=== PATIENT | female | born 1985 | race African-American/Black ===

== ENCOUNTER 2018-05-13 17:18 | Emergency (ER) | payer OTHER ==
[~2018-05-13] VITALS: Ht 167.6 cm; Wt 86.2 kg
--- NOTE | ~2018-05-13 | EKG ---
[place] [address] [facility] [place] [address] ELECTROCARDIOGRAM REPORT Name: KATHIE SALAZAR Room #: DEP LARRY Cage#: [id number] Admission: 05/13/18 Attend Phys: Discharge: 05/13/18 Date of : 83 Report #: [id number] THIS REPORT FOR: //name// [facility] ED Test Date: 2018-05-13 Test Time: 17:22:09 Pat Name: KATHIE SALAZAR Department: Room: Gender: F Computer Specialist: JAE : 1985 Requested By: Jorge Ruano Order Number: [id number] MD: Ar Macdonald Measurements Intervals [place] Rate: 71 P: 53 CO: 139 QRS: 22 QRSD: 87 T: 8 QT: 388 QTc: 422 Interpretive Statements Sinus rhythm No significant abnormality No previous ECG available for comparison Electronically Signed On 05-14-2018 10:09:41 CDT by Ar Macdonald [email or web address] <ELECTRONICALLY SIGNED> By: Ar Macdonald MD, [facility] 05/14/18 1009 1722 1722 Ar Macdonald MD, FACC /EPI
[~2018-05-13 17:18] MED LIST: AMOXICILLIN 50500 M1 PO; MUCINEX D TABL1 EAC1 PO; ULTRAM 50MG TAB50 MG PO
[2018-05-13 18:28] LABS: ABSOLUTE NEUTROPHILS 3.6 thou/uL (1.4-8.2); BASOPHILS 0.9 % (0.0-2.0); EOSINOPHILS 1.9 % (0.0-3.0); HEMATOCRIT 33.6 % (37.0-47.0); HEMOGLOBIN 10.6 gm/dL (12.0-15.0); LYMPHOCYTES 31.4 % (24.0-44.0); MCH 20.5 pg (26.0-34.0); MCHC 31.7 g/dL (28.0-37.0); MCV 64.8 fL (80.0-100.0); MONOCYTES 9.8 % (1.0-8.0); PLATELET COUNT 241 thou/uL (150-400); RBC 5.18 mil/uL (4.20-5.00); RDW 17.9 % (10.5-14.5); WBC 6.4 thou/uL (4.0-11.0)
[2018-05-13 18:38] LABS: ANION GAP 4 mmol/L (7-16); BUN 7 mg/dL (7-18); CALCIUM 9.7 mg/dL (8.5-10.1); CHLORIDE 104 mmol/L (98-107); CO2 29 mmol/L (21-32); CREATININE 0.9 mg/dL (0.6-1.0); GLUCOSE 93 mg/dL (74-106); POTASSIUM 3.7 mmol/L (3.5-5.1); SODIUM 137 mmol/L (136-145)
[2018-05-13 18:45] LABS: TROPONIN-I <0.06 ng/mL (<0.06)
[2018-05-13 18:59] LABS: ANISOCYTOSIS 1+; HYPOCHROMASIA 1+; MICROCYTES 1+
[2018-05-13] MEDS ORDERED: MOBIC15 MG PO (19:30)
[2018-05-13 19:50] VITALS: BP 159/88
== END 2018-05-13 19:50 | disposition home or self-care (01) ==
LOC: ER 17:18
PROVIDERS: Physician Assistant
DX: R07.89 Other chest pain (principal); R06.02 Shortness of breath

== ENCOUNTER → 2018-11-14 | Outpatient (CLI) | payer BC ==
[~2018-11-14] MED LIST changes: +MOBIC15 MG PO
== END ==
LOC: ULTRA 10:20
DX: N83.02 Follicular cyst of left ovary (principal); N83.01 Follicular cyst of right ovary; N92.1 Excessive and frequent menstruation with irregular cycle

== ENCOUNTER 2020-01-17 13:48 | Emergency (ER) | payer BC ==
[~2020-01-17] VITALS: Ht 170.2 cm; Wt 90.7 kg
[2020-01-17 14:34] LABS: CALCIUM 9.1 mg/dL (8.5-10.1); CREATININE 0.9 mg/dL (0.6-1.0); POTASSIUM 3.5 mmol/L (3.5-5.1)
[2020-01-17 14:39] LABS: HEMATOCRIT 37.9 % (37.0-47.0); HEMOGLOBIN 12.1 gm/dL (12.0-15.0); MCV 71.9 fL (80.0-100.0); RBC 5.27 mil/uL (4.20-5.00); RDW 14.7 % (10.5-14.5); WBC 6.3 thou/uL (4.0-11.0)
[2020-01-17] MEDS ORDERED: CYCLOBENZAPRINE5 MG PO (15:03)
[2020-01-17 15:06] VITALS: BP 124/73
== END 2020-01-17 15:06 | disposition home or self-care (01) ==
LOC: ER 13:48
PROVIDERS: Physician Assistant
DX: M43.6 Torticollis (principal); M62.838 Other muscle spasm